=== PATIENT | male | born 1950 | race Caucasian/White ===

== ENCOUNTER 2016-07-20 09:48 | Outpatient (CLI) | payer OTHER ==
[2016-01-07 17:39] VITALS: BP 178/68
[2016-07-20 10:49] LABS: eGFR (African) > 60; eGFR (Non-African) > 60
== END 2016-07-20 09:50 ==
LOC: LAB 09:48
PROVIDERS: ATTEND Family Medicine
DX: I10 Essential (primary) hypertension (principal); R73.9 Hyperglycemia, unspecified
CPT/HCPCS: 36415; 80053; 80061; 83036; 84403

== ENCOUNTER 2017-08-05 06:46 | Day surgery (SDC) | payer OTHER ==
[2016-01-07 17:39] VITALS: BP 178/68
[2017-08-05] MEDS ORDERED: PROPOFOL 500 MG/50 ML VIAL IV ONE (08:00)
[2017-08-05] MEDS ORDERED: LIDOCAINE HCL/PF 2% 100 MG/5 ML VIAL IJ ONE (08:00)
[2017-08-05] MEDS ORDERED: LACTATED RINGERS 1,000 ML IV.SOLN IV ONE (08:00)
[2017-08-05] MEDS ORDERED: SALINE FLUSH 10 ML DISP.SYRIN IVF ONE (08:00)
--- NOTE | 2017-08-09 12:39 | Operative Note ---
SURGEON: Baljit Montelongo MD ANESTHESIA: MAC anesthesia. ESTIMATED BLOOD LOSS: None. COMPLICATIONS: None. PREOPERATIVE DIAGNOSIS: Screening colonoscopy. POSTOPERATIVE DIAGNOSIS Colon polyp. PROCEDURE PERFORMED: Colonoscopy with cold biopsy polypectomy. INDICATIONS FOR PROCEDURE: This is a 66-year-old man who presents for a screening colonoscopy. DESCRIPTION OF PROCEDURE: Patient was brought to the endoscopy suite and placed in the left lateral decubitus position. A rectal exam was performed. The colonoscope was inserted and passed easily to the cecum. The ileocecal valve and appendiceal orifice were identified. The prep was good. The colonoscope was retracted. There was a greater than 6 minute withdrawal time. In the transverse colon, there was a tiny sessile polyp which was completely removed with a cold biopsy forceps. There was a lipoma in the left colon that was nonbleeding and nonobstructing. There were no other polyps or lesions seen. The patient tolerated the procedure well. FINDINGS: 1. Tiny sessile polyp in the transverse colon, otherwise, normal colonoscopy. 2. Lipoma in the left colon that was nonbleeding and nonobstructing. RECOMMENDATIONS: I recommend a repeat colonoscopy in 5 years due to the polyp. cc: Dr. Segun CALLE
== END 2017-08-05 06:47 ==
LOC: OPSURG 06:46
PROVIDERS: ATTEND Colon & Rectal Surgery
DX: Z12.11 Encounter for screening for malignant neoplasm of colon (principal); D12.3 Benign neoplasm of transverse colon
CPT/HCPCS: 45385; 88305; J2001; J2704; J7120; S1016

== ENCOUNTER 2017-12-16 08:45 | Outpatient (CLI) | payer OTHER ==
[2016-01-07 17:39] VITALS: BP 178/68
[2017-12-16 09:30] LABS: BASOPHILS % 0.5 (0.0-1.5); EOSINOPHILS % 3.9 % (0.0-6.8); MEAN CORPUSCULAR HEMOGLOBIN 29.5 pg (28.0-34.0); MEAN CORPUSCULAR VOLUME 88.6 fl (80.0-100.0); MONOCYTES % 6.5 % (0.0-11.0); NEUTROPHILS # 4.5 # k/uL (1.4-7.7)
[2017-12-16 10:01] LABS: eGFR (African) > 60; eGFR (Non-African) > 60
--- NOTE | 2017-12-16 22:53 | Diagnostic Imaging Report ---
[facility] [id number] [facility].[address] [id number] Report Submission Date: Dec 16, 2017 9:39:58 AM CDT Patient Study Name: JOSEPH GALINDO Date: Dec 16, 2017 9:00:43 AM CDT Modality Type: DX Gender: M Description: CHEST : 50 Institution: [facility] Physician: DANISH YEH Examination: PA and lateral chest. History: Evaluate lung jeffries. CXR, SOA FOR ABOUT 6 MONTHS (Hx) Comparison exam: None provided. Findings: PA lateral chest demonstrate a normal cardiac and mediastinal silhouette. Apical emphysematous changes and mild lower lung interstitial fullness. No focal infiltrate. No blunting of the costophrenic margins. Scattered granuloma. Osseous structures are appropriate for age. Impression: Emphysematous changes. No acute appearing pulmonary process. Electronically signed on Dec 16, 2017 9:39:58 AM CDT by: Soto CALLE
== END 2017-12-16 08:46 ==
LOC: RAD 08:45
PROVIDERS: ATTEND Family Medicine
DX: R06.02 Shortness of breath (principal)
CPT/HCPCS: 36415; 71046; 80053; 85025